=== PATIENT | female | born 1985 | race Hispanic/Latino ===

== ENCOUNTER 2023-09-08 06:00 | Day surgery (SDC) | payer SELFPAY ==
[2023-09-07 14:58] LABS: BASOPHILS # (AUTO) 0.04 K/uL (0.00-0.20); BASOPHILS % (AUTO) 0.4 % (0.0-5.0); HEMATOCRIT 44.2 % (36-48); IMMATURE GRANULOCYTE ABSOLUTE 0.07 K/uL (0-1); LYMPHOCYTES # (AUTO) 2.6 K/uL (1.0-4.8); LYMPHOCYTES % (AUTO) 26.1 % (21.0-51.0); MEAN CORPUSCULAR HEMOGLOBIN 22.8 pg (27.0-33.0); MEAN CORPUSCULAR HGB CONC 30.5 g/dL (32.0-36.0); MEAN CORPUSCULAR VOLUME 74.5 fL (79-99); MONOCYTES # (AUTO) 0.7 K/uL (0.1-1.0); MONOCYTES % (AUTO) 7.3 % (3.0-13.0); NEUTROPHILS # (AUTO) 6.5 K/uL (1.8-7.7); NEUTROPHILS % (AUTO) 64.5 % (40.0-77.0); PLATELET COUNT (AUTO) 224 K/uL (130-400); RED BLOOD CELL COUNT(AUTO) 5.93 MIL/uL (4.00-5.50); RED CELL DISTRIBUTION WIDTH 18.1 % (11.0-15.5)
[2023-09-07 17:25] VITALS: BP 111/72; PULSE 84; RESP 18
[~2023-09-08] VITALS: Ht 154.9 cm; Wt 69.9 kg
[~2023-09-08 06:00] MED LIST: AEC81 PO; PRENATAL PO
[2023-09-08 06:22] VITALS: BP 111/73; PULSE 88; RESP 15
[2023-09-08] MEDS ORDERED: CEFAZOLIN SODIUM 2 GM VIAL ONE (06:31)
[2023-09-08] MEDS ORDERED: LACTATED RINGERS 1000ML 1,000 ML IV ONE (06:31)
[2023-09-08] MEDS ORDERED: SUCCINYLCHOLINE CHLORIDE 20 MG/ML 10 ML VIAL ONE (06:45)
[2023-09-08] MEDS ORDERED: ROCURONIUM 10MG/1ML SYR 10 MG/ML ML ONE (06:45)
[2023-09-08] MEDS ORDERED: FENTANYL CITRATE PF 50 MCG/1 ML 2ML VIAL ONE (06:46)
[2023-09-08] MEDS ORDERED: PROPOFOL 10 MG/ML 20ML VIAL IV ONE (06:46)
[2023-09-08] MEDS ORDERED: MIDAZOLAM HCL 1 MG/ML 2ML VIAL ONE (06:46)
[2023-09-08] MEDS ORDERED: ONDANSETRON 4MG INJ ONE (06:46)
[2023-09-08] MEDS ORDERED: CEFAZOLIN SODIUM 2 GM VIAL IVPB ONE (07:00)
[2023-09-08] MEDS ORDERED: OXYTOCIN 10 USP UNITS/ML ONE (07:02)
[2023-09-08] MEDS ORDERED: LIDOCAINE HCL-MPF 2% 10ML AMP IJ ONE (07:26)
[2023-09-08 08:35] VITALS: BP 98/66; PULSE 82; RESP 15
[2023-09-08 08:50] VITALS: BP 100/65; PULSE 71; RESP 16
[2023-09-08 09:05] VITALS: BP 108/75; PULSE 80; RESP 15
== END 2023-09-08 09:20 | disposition home or self-care (01) ==
LOC: DAH 06:00
PROVIDERS: ATTEND Obstetrics & Gynecology
DX: O02.1 Missed abortion (principal)
CPT/HCPCS: 84703; 85025; 86850; 86900; 86901; 36415; 59820; 88305; A6260; J7030; A4351 ×2; J7120; J3010; J0330; J2250; J2590; J2704; J2405; J3490; J0690 ×2